=== PATIENT | female | born 1945 | race Caucasian/White ===

== ENCOUNTER 2016-12-24 18:44 | Inpatient (IN) | payer OTHER ==
[~2016-12-24] VITALS: Ht 167.6 cm; Wt 65.8 kg
[~2016-12-24 18:44] MED LIST: ACYC800T4 PO; ASPI-496 PO; FAMO-79 PO; HYDR-3138 PO; LAMO25TA PO; LEVE100020 PO; LEVE500T53 PO; ONDA4VIA4 PO; SENN1TAB7 PO
[2016-12-24] MEDS ORDERED: ONDANSETRON 2MG/ML, 2ML ONE (20:35)
[2016-12-24] MEDS ORDERED: MORPHINE SULFATE 4 MG/ML, 1ML ONE (20:35)
[2016-12-24] MEDS ORDERED: MORPHINE SULFATE 4 MG/ML, 1ML IVPush PRN (21:00)
[2016-12-24] MEDS ORDERED: ONDANSETRON 2MG/ML, 2ML IVPush ONE (21:00)
[2016-12-24 21:05] LABS: ASPARTATE AMINO TRANSFERASE 22 U/L (15-37); BLOOD UREA NITROGEN 10 mg/dL (7-18)
[2016-12-24] MEDS ORDERED: LABETALOL 5MG/ML, 20ML IV PRN (22:30)
[2016-12-24] MEDS ORDERED: ONDANSETRON ODT 4 MG PO PRN (22:30)
[2016-12-24] MEDS ORDERED: SODIUM CHLORIDE FLUSH 10ML SYR IVF PRN (22:30)
[2016-12-24 23:16] VITALS: BP 152/77
[2016-12-24] MEDS: NS + 20MEQ KCL 1,000 ML IV SCH (23:36)
[2016-12-24] MEDS: HEPARIN 5,000 UNITS/ML, 1ML SQ SCH (23:36)
[2016-12-25 00:06] VITALS: BP 152/77
[2016-12-25 04:01] VITALS: BP 146/76
[2016-12-25] MEDS: HEPARIN 5,000 UNITS/ML, 1ML SQ SCH ×3 (05:28→22:50)
[2016-12-25 06:08] LABS: BLOOD UREA NITROGEN 10 mg/dL (7-18)
[2016-12-25 06:32] VITALS: BP 149/76
[2016-12-25] MEDS: NS + 20MEQ KCL 1,000 ML IV SCH ×3 (06:36→21:06)
[2016-12-25] MEDS: LAMOTRIGINE 25 MG TABLET PO SCH ×2 (09:32→21:29)
[2016-12-25] MEDS: LEVETIRACETAM 500 MG TABLET PO SCH ×2 (09:33→21:07)
[2016-12-25] MEDS: FAMOTIDINE 20 MG TABLET PO SCH (09:33)
[2016-12-25 12:47] VITALS: BP 147/72
[2016-12-25 20:57] VITALS: BP 155/76
[2016-12-26 00:42] VITALS: BP 150/72
[2016-12-26] MEDS: NS + 20MEQ KCL 1,000 ML IV SCH ×3 (05:26→22:43)
[2016-12-26] MEDS: MORPHINE SULFATE 4 MG/ML, 1ML IVPush PRN (05:35)
[2016-12-26 06:35] LABS: BLOOD UREA NITROGEN 6 mg/dL (7-18)
[2016-12-26] MEDS: HEPARIN 5,000 UNITS/ML, 1ML SQ SCH ×2 (06:42→21:50)
[2016-12-26 07:30] VITALS: BP 152/72
[2016-12-26] MEDS: LAMOTRIGINE 25 MG TABLET PO SCH ×2 (07:54→21:12)
[2016-12-26] MEDS: LEVETIRACETAM 500 MG TABLET PO SCH ×2 (07:55→22:50)
[2016-12-26] MEDS: FAMOTIDINE 20 MG TABLET PO SCH (07:55)
[2016-12-26 12:52] VITALS: BP 159/67
[2016-12-26] MEDS ORDERED: FENTANYL PF 250 MCG/5ML ONE (13:56)
[2016-12-26] MEDS ORDERED: NEOSPORIN OINT, 15GM ONE (14:05)
[2016-12-26] MEDS ORDERED: HYDROmorphone 1 MG/ML, 1ML ONE (14:44)
[2016-12-26] MEDS ORDERED: FENTANYL PF 100 MCG/2ML IV PRN (15:30)
[2016-12-26] MEDS ORDERED: PROMETHAZINE 25 MG/ML, 1ML IV PRN (15:30)
[2016-12-26] MEDS ORDERED: HYDROmorphone 1 MG/ML, 1ML IV PRN (15:30)
[2016-12-26] MEDS ORDERED: ACETAMINOPHEN 325 MG TABLET PO PRN (15:30)
[2016-12-26] MEDS ORDERED: OXYcodone 5 MG/5 ML ORAL.SOL UDC PO PRN (15:30)
[2016-12-26] MEDS ORDERED: METOCLOPRAMIDE 5 MG/ML, 2ML IV PRN (15:30)
[2016-12-26] MEDS ORDERED: ONDANSETRON 2MG/ML, 2ML IVPush PRN (15:30)
[2016-12-26] MEDS ORDERED: DEXAMETHASONE 4 MG/ML, 1ML ONE (16:59)
[2016-12-26] MEDS ORDERED: ROCURONIUM 10 MG/ML ONE (16:59)
[2016-12-26] MEDS ORDERED: CEFAZOLIN 1,000 MG ONE (16:59)
[2016-12-26] MEDS ORDERED: ONDANSETRON 2MG/ML, 2ML ONE (16:59)
[2016-12-26] MEDS ORDERED: ETOMIDATE 20 MG/10 ML ONE (16:59)
[2016-12-26 21:07] VITALS: BP 116/67
[2016-12-26] MEDS: CEFAZOLIN PMX 1GM/50ML 50 ML IVPB SCH (22:50)
[2016-12-26 23:41] VITALS: BP 134/68
[2016-12-27 04:20] VITALS: BP 132/77
[2016-12-27 04:24] VITALS: BP 132/77
[2016-12-27] MEDS: NS + 20MEQ KCL 1,000 ML IV SCH ×3 (05:20→20:11)
[2016-12-27 05:38] LABS: BLOOD UREA NITROGEN 12 mg/dL (7-18)
[2016-12-27] MEDS: CEFAZOLIN PMX 1GM/50ML 50 ML IVPB SCH (06:16)
[2016-12-27 07:05] VITALS: BP 123/68
[2016-12-27] MEDS: LAMOTRIGINE 25 MG TABLET PO SCH ×2 (10:49→20:12)
[2016-12-27] MEDS: FAMOTIDINE 20 MG TABLET PO SCH (10:49)
[2016-12-27] MEDS: DOCUSATE 100 MG CAPSULE PO PRN (10:49)
[2016-12-27] MEDS: LEVETIRACETAM 500 MG TABLET PO SCH ×2 (10:49→20:12)
[2016-12-27 12:49] VITALS: BP 121/71
[2016-12-27] MEDS: HEPARIN 5,000 UNITS/ML, 1ML SQ SCH (15:38)
[2016-12-27 18:25] VITALS: BP 119/73
[2016-12-27] MEDS: MORPHINE SULFATE 4 MG/ML, 1ML IVPush PRN (20:21)
[2016-12-28 02:16] VITALS: BP 128/81
[2016-12-28] MEDS: NS + 20MEQ KCL 1,000 ML IV SCH ×2 (04:09→16:44)
[2016-12-28] MEDS: MORPHINE SULFATE 4 MG/ML, 1ML IVPush PRN ×2 (05:31→14:46)
[2016-12-28 05:48] LABS: BLOOD UREA NITROGEN 9 mg/dL (7-18)
[2016-12-28] MEDS: HEPARIN 5,000 UNITS/ML, 1ML SQ SCH ×3 (06:38→22:55)
[2016-12-28 06:41] VITALS: BP 149/75
[2016-12-28] MEDS: LEVETIRACETAM 500 MG TABLET PO SCH ×2 (09:23→21:38)
[2016-12-28] MEDS: LAMOTRIGINE 25 MG TABLET PO SCH ×2 (09:24→21:40)
[2016-12-28] MEDS: FAMOTIDINE 20 MG TABLET PO SCH (09:24)
[2016-12-28 12:30] VITALS: BP 125/70
[2016-12-28] MEDS ORDERED: POTASSIUM CHLORIDE 20 MEQ TAB.ER.PRT PO ONE (13:00)
[2016-12-28 18:55] VITALS: BP 125/70
[2016-12-29 02:40] VITALS: BP 131/59
[2016-12-29] MEDS: MORPHINE SULFATE 4 MG/ML, 1ML IVPush PRN ×3 (02:42→23:28)
[2016-12-29 06:09] LABS: BLOOD UREA NITROGEN 7 mg/dL (7-18)
[2016-12-29] MEDS: HEPARIN 5,000 UNITS/ML, 1ML SQ SCH ×3 (06:16→23:14)
[2016-12-29 07:09] VITALS: BP 113/62
[2016-12-29] MEDS: FAMOTIDINE 20 MG TABLET PO SCH (09:08)
[2016-12-29] MEDS: LEVETIRACETAM 500 MG TABLET PO SCH ×2 (09:08→23:14)
[2016-12-29] MEDS: LAMOTRIGINE 25 MG TABLET PO SCH ×2 (09:09→23:15)
[2016-12-29 13:36] VITALS: BP 107/66
[2016-12-29] MEDS: NS + 20MEQ KCL 1,000 ML IV SCH (14:53)
[2016-12-29 19:40] VITALS: BP 123/71
[2016-12-30 02:33] VITALS: BP 124/66
[2016-12-30] MEDS: MORPHINE SULFATE 4 MG/ML, 1ML IVPush PRN ×3 (04:01→22:59)
[2016-12-30] MEDS: HEPARIN 5,000 UNITS/ML, 1ML SQ SCH ×3 (06:45→22:53)
[2016-12-30 08:10] VITALS: BP 117/70
[2016-12-30] MEDS: FAMOTIDINE 20 MG TABLET PO SCH (09:39)
[2016-12-30] MEDS: LEVETIRACETAM 500 MG TABLET PO SCH ×2 (09:39→20:26)
[2016-12-30] MEDS: LAMOTRIGINE 25 MG TABLET PO SCH ×2 (09:39→20:26)
[2016-12-30] MEDS: NS + 20MEQ KCL 1,000 ML IV SCH (11:51)
[2016-12-30 12:20] VITALS: BP 123/76
[2016-12-30 19:15] VITALS: BP 116/77
[2016-12-30] MEDS: POLYETHYLENE GLYCOL 17 GM PACKET PO PRN (20:26)
[2016-12-31 02:46] VITALS: BP 111/50
[2016-12-31] MEDS: MORPHINE SULFATE 4 MG/ML, 1ML IVPush PRN ×4 (05:09→23:20)
[2016-12-31] MEDS: NS + 20MEQ KCL 1,000 ML IV SCH (05:41)
[2016-12-31] MEDS: HEPARIN 5,000 UNITS/ML, 1ML SQ SCH ×3 (06:37→23:20)
[2016-12-31 06:40] VITALS: BP 96/59
[2016-12-31] MEDS: LEVETIRACETAM 500 MG TABLET PO SCH ×2 (08:21→23:19)
[2016-12-31] MEDS: FAMOTIDINE 20 MG TABLET PO SCH (08:22)
[2016-12-31] MEDS: LAMOTRIGINE 25 MG TABLET PO SCH ×2 (08:22→23:19)
[2016-12-31] MEDS ORDERED: OXYcodone/APAP 5/325MG TABLET PO PRN (11:30)
[2016-12-31 12:30] VITALS: BP 107/62
[2016-12-31] MEDS: POLYETHYLENE GLYCOL 17 GM PACKET PO PRN (17:01)
[2016-12-31] MEDS: DOCUSATE 100 MG CAPSULE PO PRN (17:02)
[2016-12-31 18:59] VITALS: BP 122/75
[2017-01-01] MEDS: NS + 20MEQ KCL 1,000 ML IV SCH ×2 (00:44→22:40)
[2017-01-01 05:53] VITALS: BP 145/67
[2017-01-01] MEDS: HEPARIN 5,000 UNITS/ML, 1ML SQ SCH ×3 (06:50→21:50)
[2017-01-01 07:31] VITALS: BP 123/72
[2017-01-01] MEDS: LAMOTRIGINE 25 MG TABLET PO SCH ×2 (08:17→21:50)
[2017-01-01] MEDS: FAMOTIDINE 20 MG TABLET PO SCH (08:18)
[2017-01-01] MEDS: LEVETIRACETAM 500 MG TABLET PO SCH ×2 (08:18→21:50)
[2017-01-01] MEDS: BISACODYL 10 MG SUPP PR PRN (08:18)
[2017-01-01] MEDS: MORPHINE SULFATE 4 MG/ML, 1ML IVPush PRN ×2 (11:19→22:40)
[2017-01-01 15:10] VITALS: BP 159/82
[2017-01-01] MEDS ORDERED: ACETAMINOPHEN 650 MG SUPP ONE (16:13)
[2017-01-01] MEDS ORDERED: ACETAMINOPHEN 650 MG SUPP PR PRN (16:30)
[2017-01-01 17:47] LABS: BLOOD UREA NITROGEN 11 mg/dL (7-18)
[2017-01-01 18:47] VITALS: BP 152/90
[2017-01-02 01:14] VITALS: BP 124/66
[2017-01-02] MEDS: HEPARIN 5,000 UNITS/ML, 1ML SQ SCH ×3 (06:13→23:31)
[2017-01-02 07:15] VITALS: BP 134/66
[2017-01-02] MEDS: LEVETIRACETAM 500 MG TABLET PO SCH ×2 (08:56→20:34)
[2017-01-02] MEDS: FAMOTIDINE 20 MG TABLET PO SCH (08:57)
[2017-01-02] MEDS: LAMOTRIGINE 25 MG TABLET PO SCH ×2 (08:57→20:34)
[2017-01-02 12:30] VITALS: BP 144/72
[2017-01-02] MEDS: CEFTRIAXONE PMX 1GM/50ML 50 ML IV SCH (16:28)
[2017-01-02] MEDS: NS + 20MEQ KCL 1,000 ML IV SCH (16:32)
[2017-01-02 19:53] VITALS: BP 174/80
[2017-01-02 20:18] VITALS: BP 151/88
[2017-01-03 01:51] VITALS: BP 160/78
[2017-01-03] MEDS: HEPARIN 5,000 UNITS/ML, 1ML SQ SCH ×3 (06:14→22:57)
[2017-01-03 08:10] VITALS: BP 138/74
[2017-01-03] MEDS: MORPHINE SULFATE 4 MG/ML, 1ML IVPush PRN (08:57)
[2017-01-03] MEDS: LEVETIRACETAM 500 MG TABLET PO SCH ×2 (09:32→21:16)
[2017-01-03] MEDS: FAMOTIDINE 20 MG TABLET PO SCH (09:32)
[2017-01-03] MEDS: LAMOTRIGINE 25 MG TABLET PO SCH ×2 (09:32→21:16)
[2017-01-03 14:34] VITALS: BP 128/78
[2017-01-03] MEDS: NS + 20MEQ KCL 1,000 ML IV SCH (14:54)
[2017-01-03] MEDS: CEFTRIAXONE PMX 1GM/50ML 50 ML IV SCH (17:16)
[2017-01-03 18:29] VITALS: BP 133/79
[2017-01-04 02:08] VITALS: BP 133/82
[2017-01-04] MEDS: HEPARIN 5,000 UNITS/ML, 1ML SQ SCH ×3 (05:59→23:22)
[2017-01-04 06:56] VITALS: BP 130/76
[2017-01-04] MEDS: FAMOTIDINE 20 MG TABLET PO SCH (09:06)
[2017-01-04] MEDS: LAMOTRIGINE 25 MG TABLET PO SCH ×2 (09:06→21:30)
[2017-01-04] MEDS: LEVETIRACETAM 500 MG TABLET PO SCH ×2 (09:06→21:30)
[2017-01-04] MEDS: NS + 20MEQ KCL 1,000 ML IV SCH (12:48)
[2017-01-04 13:30] VITALS: BP 121/76
[2017-01-04] MEDS: CEFTRIAXONE PMX 1GM/50ML 50 ML IV SCH (15:45)
[2017-01-04 18:34] VITALS: BP 138/79
[2017-01-05 01:08] VITALS: BP 149/84
[2017-01-05] MEDS: HEPARIN 5,000 UNITS/ML, 1ML SQ SCH ×3 (06:12→22:27)
[2017-01-05 06:48] VITALS: BP 147/82
[2017-01-05] MEDS: LEVETIRACETAM 500 MG TABLET PO SCH ×2 (09:18→22:27)
[2017-01-05] MEDS: LAMOTRIGINE 25 MG TABLET PO SCH ×2 (09:19→22:26)
[2017-01-05] MEDS: FAMOTIDINE 20 MG TABLET PO SCH (09:19)
[2017-01-05] MEDS: POLYETHYLENE GLYCOL 17 GM PACKET PO PRN (11:36)
[2017-01-05] MEDS: DOCUSATE 100 MG CAPSULE PO PRN (11:36)
[2017-01-05] MEDS: NS + 20MEQ KCL 1,000 ML IV SCH (11:37)
[2017-01-05 13:49] VITALS: BP 164/79
[2017-01-05] MEDS: CEFTRIAXONE PMX 1GM/50ML 50 ML IV SCH (16:30)
[2017-01-05 18:28] VITALS: BP 165/80
[2017-01-06 01:02] VITALS: BP 171/77
[2017-01-06] MEDS: HEPARIN 5,000 UNITS/ML, 1ML SQ SCH ×3 (06:37→21:11)
[2017-01-06] MEDS: BISACODYL 10 MG SUPP PR PRN (06:39)
[2017-01-06 06:52] VITALS: BP 133/83
[2017-01-06 07:57] VITALS: BP 156/78
[2017-01-06] MEDS: LAMOTRIGINE 25 MG TABLET PO SCH ×2 (09:49→21:13)
[2017-01-06] MEDS: LEVETIRACETAM 500 MG TABLET PO SCH ×2 (09:50→21:13)
[2017-01-06] MEDS: FAMOTIDINE 20 MG TABLET PO SCH (09:50)
[2017-01-06] MEDS: NS + 20MEQ KCL 1,000 ML IV SCH (12:33)
[2017-01-06 12:39] VITALS: BP 170/80
[2017-01-06] MEDS: CEFTRIAXONE PMX 1GM/50ML 50 ML IV SCH (16:45)
[2017-01-06 19:57] VITALS: BP 176/90
[2017-01-07 01:35] VITALS: BP 163/79
[2017-01-07] MEDS: HEPARIN 5,000 UNITS/ML, 1ML SQ SCH ×3 (05:34→23:06)
[2017-01-07 06:31] VITALS: BP 151/82
[2017-01-07] MEDS: D5%-0.45% NACL 1,000 ML IV SCH (10:00)
[2017-01-07] MEDS: LAMOTRIGINE 25 MG TABLET PO SCH ×2 (10:01→20:31)
[2017-01-07] MEDS: FAMOTIDINE 20 MG TABLET PO SCH (10:01)
[2017-01-07] MEDS: LEVETIRACETAM 500 MG TABLET PO SCH ×2 (10:01→20:30)
[2017-01-07 12:36] VITALS: BP 143/75
[2017-01-07 19:33] VITALS: BP 153/69
[2017-01-08 01:24] VITALS: BP 148/79
[2017-01-08] MEDS: HEPARIN 5,000 UNITS/ML, 1ML SQ SCH ×3 (06:07→22:50)
[2017-01-08] MEDS: D5%-0.45% NACL 1,000 ML IV SCH (06:10)
[2017-01-08 07:39] VITALS: BP 167/70
[2017-01-08] MEDS: FAMOTIDINE 20 MG TABLET PO SCH (08:47)
[2017-01-08] MEDS: LEVETIRACETAM 500 MG TABLET PO SCH ×2 (08:47→22:51)
[2017-01-08] MEDS: LAMOTRIGINE 25 MG TABLET PO SCH ×2 (08:47→22:50)
[2017-01-08 08:59] VITALS: BP 151/78
[2017-01-08 13:10] VITALS: BP 133/75
[2017-01-08 19:46] VITALS: BP 137/70
[2017-01-09 01:55] VITALS: BP 131/72
[2017-01-09 07:30] VITALS: BP 162/68
[2017-01-09] MEDS: HEPARIN 5,000 UNITS/ML, 1ML SQ SCH ×2 (07:32→14:37)
[2017-01-09] MEDS: D5%-0.45% NACL 1,000 ML IV SCH (07:32)
[2017-01-09] MEDS: FAMOTIDINE 20 MG TABLET PO SCH (10:31)
[2017-01-09] MEDS: LAMOTRIGINE 25 MG TABLET PO SCH ×2 (10:31→22:43)
[2017-01-09] MEDS: LEVETIRACETAM 500 MG TABLET PO SCH ×2 (10:31→22:43)
[2017-01-09 15:41] VITALS: BP 144/75
[2017-01-09 20:14] VITALS: BP 143/65
[2017-01-10] MEDS: HEPARIN 5,000 UNITS/ML, 1ML SQ SCH ×4 (00:09→22:15)
[2017-01-10 02:06] VITALS: BP 151/71
[2017-01-10] MEDS: D5%-0.45% NACL 1,000 ML IV SCH (05:38)
[2017-01-10 06:30] VITALS: BP 131/74
[2017-01-10] MEDS: LAMOTRIGINE 25 MG TABLET PO SCH ×2 (09:27→20:49)
[2017-01-10] MEDS: FAMOTIDINE 20 MG TABLET PO SCH (09:28)
[2017-01-10] MEDS: LEVETIRACETAM 500 MG TABLET PO SCH ×2 (09:28→20:49)
[2017-01-10 14:38] VITALS: BP 137/62
[2017-01-10 20:52] VITALS: BP 124/66
[2017-01-11] MEDS: D5%-0.45% NACL 1,000 ML IV SCH ×2 (01:30→06:19)
[2017-01-11 02:50] VITALS: BP 133/71
[2017-01-11] MEDS: HEPARIN 5,000 UNITS/ML, 1ML SQ SCH ×3 (06:20→23:25)
[2017-01-11 06:45] VITALS: BP 132/77
[2017-01-11] MEDS: FAMOTIDINE 20 MG TABLET PO SCH (08:15)
[2017-01-11] MEDS: LEVETIRACETAM 500 MG TABLET PO SCH (08:15)
[2017-01-11] MEDS: LAMOTRIGINE 25 MG TABLET PO SCH ×2 (08:15→21:28)
[2017-01-11 12:30] VITALS: BP 143/80
[2017-01-11] MEDS: LEVETIRACETAM 1,000 MG in SODIUM CHLORIDE 0.9% 100 ML IV SCH (16:06)
[2017-01-11 18:29] VITALS: BP 151/67
[2017-01-11] MEDS ORDERED: SODIUM CHLORIDE IV SCH (21:00)
[2017-01-11] MEDS ORDERED: LEVETIRACETAM IV SCH (21:00)
[2017-01-12 02:12] VITALS: BP 159/69
[2017-01-12] MEDS: LEVETIRACETAM 1,000 MG in SODIUM CHLORIDE 0.9% 100 ML IV SCH ×2 (03:46→15:39)
[2017-01-12] MEDS: D5%-0.45% NACL 1,000 ML IV SCH (03:49)
[2017-01-12 06:40] VITALS: BP 155/74
[2017-01-12] MEDS: HEPARIN 5,000 UNITS/ML, 1ML SQ SCH ×2 (07:59→15:39)
[2017-01-12] MEDS: LAMOTRIGINE 25 MG TABLET PO SCH (07:59)
[2017-01-12] MEDS ORDERED: FAMOTIDINE 20 MG/2 ML IV SCH (09:00)
[2017-01-12 13:23] VITALS: BP 150/81
[2017-01-12 18:35] VITALS: BP 128/68
[2017-01-12] MEDS: MORPHINE SULFATE 4 MG/ML, 1ML IVPush PRN (22:14)
[2017-01-13] MEDS: LEVETIRACETAM 1,000 MG in SODIUM CHLORIDE 0.9% 100 ML IV SCH (04:07)
[2017-01-13 04:13] VITALS: BP 128/64
[2017-01-13 06:52] VITALS: BP 135/71
[2017-01-13] MEDS: MORPHINE SULFATE 4 MG/ML, 1ML IVPush PRN ×2 (18:11→22:23)
[2017-01-14] MEDS: MORPHINE SULFATE 4 MG/ML, 1ML IVPush PRN ×5 (01:16→13:54)
[2017-01-15] MEDS: MORPHINE SULFATE 4 MG/ML, 1ML IVPush PRN ×5 (06:59→23:33)
[2017-01-15] MEDS: LORazepam 2 MG/ML, 1ML IVPush PRN ×4 (11:33→23:33)
[2017-01-16] MEDS: LORazepam 2 MG/ML, 1ML IVPush PRN (02:50)
[2017-01-16] MEDS: MORPHINE SULFATE 4 MG/ML, 1ML IVPush PRN (02:51)
== END 2017-01-16 04:25 | disposition expired | DRG 469 ==
LOC: ED 21:50 → EDIP 22:13 → 4NOR 22:55 → 3NW 01-13 13:05
PROVIDERS: ADMIT Internal Medicine
PROC: 0SRR0JZ Replacement of Right Hip Joint, Femoral Surface with Synthetic Substitute, Open Approach (ICD-10-PCS; principal; 2016-12-26 14:30)
PROC: 0T9B70Z Drainage of Bladder with Drainage Device, Via Natural or Artificial Opening (ICD-10-PCS; 2017-01-01)
DX: S72.041A Displaced fracture of base of neck of right femur, initial encounter for closed fracture (principal); G93.40 Encephalopathy, unspecified; C71.9 Malignant neoplasm of brain, unspecified; E87.1 Hypo-osmolality and hyponatremia; R47.01 Aphasia; R65.10 Systemic inflammatory response syndrome (SIRS) of non-infectious origin without acute organ dysfunction; R78.81 Bacteremia; E87.6 Hypokalemia; B95.7 Other staphylococcus as the cause of diseases classified elsewhere; G40.909 Epilepsy, unspecified, not intractable, without status epilepticus; R13.10 Dysphagia, unspecified; R47.02 Dysphasia; Z51.5 Encounter for palliative care; Z66 Do not resuscitate; D72.828 Other elevated white blood cell count; W18.30XA Fall on same level, unspecified, initial encounter; F03.90 Unspecified dementia, unspecified severity, without behavioral disturbance, psychotic disturbance, mood disturbance, and anxiety; Z92.3 Personal history of irradiation; Y93.89 Activity, other specified; Y92.098 Other place in other non-institutional residence as the place of occurrence of the external cause; Y99.8 Other external cause status; Z82.3 Family history of stroke; Z80.1 Family history of malignant neoplasm of trachea, bronchus and lung
CPT/HCPCS: 36415; 70450; 71010; 80048; 80053; 81001; 83735; 85025; 85610; 85730; 86480; 87040; 93005; 96374; 96375; J0690; J0696; J1100; J1170; J1644; J1953; J2405; J3010; J3480; C1776; J2060; S0028